=== PATIENT | male | born 1980 | race African-American/Black ===

== ENCOUNTER 2019-07-02 13:43 | Emergency (ER) | payer BC ==
--- NOTE | 2019-07-02 14:40 | RAD ---
EXAM: Portable chest PROVIDED CLINICAL HISTORY: Dyspnea COMPARISON: None FINDINGS: Evaluation is limited by patient body habitus. Cardiac silhouette appears enlarged. Prominence of the pulmonary vasculature and pulmonary interstitium. No focal consolidation, pleural fluid or pneumothorax evident. IMPRESSION: Cardiomegaly and findings suggesting congestive failure.
[2019-07-02 15:09] LABS: Anion Gap 14 mmol/L (10-20); BUN (Urea Nitrogen) 14 mg/dL (8.9-20.6); Calc. Creatinine Clearance 0 mL/min (70-130); Calcium 9.6 mg/dL (7.8-10.44); Carbon Dioxide 26 mmol/L (22-29); Chloride 106 mmol/L (98-107); Estimated GFR-MDRD 67; Glucose 102 mg/dL (70-105); Potassium 4.1 mmol/L (3.5-5.1); Sodium 142 mmol/L (136-145)
[2019-07-02 15:10] LABS: ALT (SGPT) 62 U/L (8-55); AST (SGOT) 26 U/L (5-34); Albumin 4.4 g/dL (3.5-5.0); Alkaline Phosphatase 76 U/L (40-110); Band 2 % (5-11); CK (CPK) 107 U/L (30-200); Globulin 3.6 g/dL (2.4-3.5); Hemoglobin 14.6 g/dL (14.0-18.0); Lymphocytes 33 % (21-51); MDiff Complete? YES; Mean Corpuscular HGB CONC 30.1 g/dL (32.0-36.0); Mean Corpuscular Hemoglobin 28.6 pg (27.0-31.0); Mean Corpuscular Volume 95.2 fL (78.0-98.0); Mean Platelet Volume 8.7 fL (7.4-10.4); Metamyelocyte 1 % (0-0); Monocytes 3 % (0-10); Myelocyte 1 % (0-0); Neutrophil 34 % (42-75); Nucleated RBC 1 % (0); Platelet Count 304 thou/uL (130-400); Platelet Morphology Comment Appears Adequate; RBC Distribution Width 13.2 % (11.5-14.5); RBC Morphology Normal; Reactive Lymphocytes 26 % (0-10); Red Blood Cell (RBC) Count 5.09 mill/uL (4.70-6.10); White Blood Cell (WBC) Count 7.1 thou/uL (4.8-10.8)
[2019-07-02 15:26] LABS: CKMB 0.9 ng/mL (0-6.6)
[2019-07-02] MEDS ORDERED: Aspirin Chewable 81 MG TAB ONE (15:32)
[2019-07-02] MEDS ORDERED: Furosemide 40 MG/4 ML VIAL ONE (15:32)
== END 2019-07-02 16:30 | disposition home or self-care (01) ==
LOC: MADERS 13:43
DX: I11.0 Hypertensive heart disease with heart failure (principal); I50.9 Heart failure, unspecified; M10.9 Gout, unspecified; I25.10 Atherosclerotic heart disease of native coronary artery without angina pectoris; E78.5 Hyperlipidemia, unspecified; E78.00 Pure hypercholesterolemia, unspecified; Z79.899 Other long term (current) drug therapy; Z79.82 Long term (current) use of aspirin
CPT/HCPCS: 71045; 80053; 82550; 82553; 83605; 83880; 84484; 85025; 85379; 93005; 96374; J1940